=== PATIENT | female | born 1965 | race Caucasian/White ===

== ENCOUNTER 2017-01-16 10:35 | Outpatient (CLI) | payer MEDICAID | END 2017-01-16 10:36 | disposition home or self-care (01) | DX: Z13.9 Encounter for screening, unspecified (principal); Z13.29 Encounter for screening for other suspected endocrine disorder; Z13.0 Encounter for screening for diseases of the blood and blood-forming organs and certain disorders involving the immune mechanism ==

== ENCOUNTER 2017-01-21 15:13 | Outpatient (CLI) | payer MEDICAID | END 2017-01-21 15:14 | disposition home or self-care (01) | DX: Z12.31 Encounter for screening mammogram for malignant neoplasm of breast (principal) ==

== ENCOUNTER 2017-01-21 15:16 | Outpatient (CLI) | payer MEDICAID | END 2017-01-21 15:17 | disposition home or self-care (01) | DX: Z30.431 Encounter for routine checking of intrauterine contraceptive device (principal) ==

== ENCOUNTER 2017-03-07 15:09 | Outpatient (CLI) | payer MEDICAID ==
[2017-03-07 17:15] LABS: FOLLICLE STIMULATING HORMONE 91.87 mIU/mL
[2017-03-07 17:16] LABS: LUTEINIZING HORMONE 23.72 mIU/mL
== END 2017-03-07 15:10 | disposition home or self-care (01) ==
LOC: LAB 15:09
PROVIDERS: ATTEND Obstetrics & Gynecology
DX: N95.1 Menopausal and female climacteric states (principal)
CPT/HCPCS: 83001; 83002

== ENCOUNTER 2017-05-24 11:45 | Outpatient (CLI) | payer MEDICAID ==
[2017-05-24 18:10] LABS: BILIRUBIN,URINE NEGATIVE (NEGATIVE)
[2017-05-24 20:01] LABS: UR CULTURE IF IND NOT INDICATED
== END 2017-05-24 11:46 | disposition home or self-care (01) ==
LOC: LAB.R 11:45
PROVIDERS: ATTEND Physician Assistant Medical
DX: N39.0 Urinary tract infection, site not specified (principal)
CPT/HCPCS: 81001; 87086

== ENCOUNTER 2017-06-05 15:20 | Outpatient (CLI) | payer MEDICAID ==
--- NOTE | 2017-06-06 09:49 | Ultrasound Report ---
RENAL ULTRASOUND: 06/05/2017 CLINICAL INDICATION: Microscopic hematuria, left flank pain. TECHNIQUE: Real-time scanning was performed with telemarketing sales representative static images obtained. FINDINGS: The right kidney measures 12.2 x 5.9 x 5.1 cm, and the left kidney measures 12.3 x 6.4 x 6 .0 cm. A 7-mm angiomyolipoma is incidentally noted in the upper pole of the left kidney, unchanged f rom previous CT of 05/25/2012. No definite shadowing calculus, hydronephrosis, or suspicious solid r enal mass is seen. Prevoid, the bladder measures 11.4 x 9.2 x 7.6 cm, yielding a prevoid volume of 416 mL. Bilateral ur eteral jets are visualized. Postvoid residual is 241 mL. IMPRESSION: NO EVIDENCE OF NEPHROLITHIASIS OR HYDRONEPHROSIS. A TOTAL OF 241 ML POSTVOID RESIDUAL. JOB #: [id number] EXT JOB #:[id number]
== END 2017-06-05 15:21 | disposition home or self-care (01) ==
LOC: DI 15:20
PROVIDERS: ATTEND Physician Assistant Medical
DX: R31.29 Other microscopic hematuria (principal); R10.9 Unspecified abdominal pain
CPT/HCPCS: 76770

== ENCOUNTER 2017-12-25 12:57 | Outpatient (CLI) | payer MEDICAID | END 2017-12-25 12:58 | disposition home or self-care (01) | LOC: LAB.F 12:57 | PROVIDERS: ATTEND Physician Assistant Medical | DX: E53.8 Deficiency of other specified B group vitamins (principal) | CPT/HCPCS: 36415; 82607 ==

== ENCOUNTER 2018-05-18 19:29 | Outpatient (CLI) | payer MEDICAID ==
--- NOTE | 2018-05-19 00:11 | XRAY Report ---
Procedure Date: 05/18/2018 Accession Number: [id number] / [id number] Procedure: XR - Hand 2 View BILAT CPT Code: FULL RESULT: EXAMS: 1. Right Hand Radiography 2. Left Hand Radiography EXAM DATE: 05/18/2018 07:41 PM. CLINICAL HISTORY: JOINT PAIN, HAND. COMPARISON: None. TECHNIQUE: 2 views each hand. FINDINGS: Right: Bones: Normal. No fractures or bone lesions. Joints: Normal. No subluxations. Soft Tissues: Normal. No soft tissue swelling. Left: Bones: Normal. No fractures or bone lesions. Joints: Normal. No subluxations. Soft Tissues: Normal. No soft tissue swelling. IMPRESSION: Normal bilateral hand radiography. RADIA
== END 2018-05-18 19:30 | disposition home or self-care (01) ==
LOC: DI 19:29
PROVIDERS: ATTEND Internal Medicine
DX: M25.542 Pain in joints of left hand (principal); M25.541 Pain in joints of right hand

== ENCOUNTER 2018-07-09 06:43 | Outpatient (CLI) | payer MEDICAID | END 2018-07-09 06:44 | disposition critical access hospital (66) | LOC: EMS 06:43 | PROVIDERS: ATTEND Surgery | DX: R07.89 Other chest pain (principal) | CPT/HCPCS: A0425; A0427; A0999 ==

== ENCOUNTER 2018-07-09 07:09 | Observation (INO) | payer MEDICAID ==
--- NOTE | 2018-07-09 07:14 | ED Physician Documentation ---
PD HPI NVD - History obtained from History obtained from: Patient - History of Present Illness Timing - onset: How many hours ago (1), Today Timing - duration: Hours (1) Timing - details: Abrupt onset Associated symptoms: Chest pain. No: Abdominal pain Contributing factors: No: Sick contact Similar symptoms before: Has not had sx before Recently seen: Not recently seen Review of Systems Constitutional: denies: Fever, Chills, Myalgias Nose: denies: Rhinorrhea / runny nose, Congestion Throat: denies: Sore throat Cardiac: denies: Palpitations, Pedal edema, Calf pain Respiratory: reports: Cough, Wheezing (past few weeks, improved the past week with meds.) GI: denies: Abdominal Pain, Nausea, Vomiting, Diarrhea (but had loose stools yesterday), Bloody / black stool : denies: Dysuria, Frequency Skin: denies: Rash Neurologic: reports: Generalized weakness. denies: Near syncope, Syncope, Altered mental status, Headache PD PAST MEDICAL HISTORY - Past Medical History Cardiovascular: None Respiratory: None Neuro: None Endocrine/Autoimmune: None - Present Medications Home Medications: Ambulatory Orders Medication Instructions Recorded Confirmed Buprenorphine HCl/Naloxone HCl 2 film SL DAILY 07/09/18 07/09/18 [Suboxone 8 mg-2 mg Sl Film] Bupropion HCl [Bupropion Xl] 150 mg PO DAILY 07/09/18 07/09/18 RX: Albuterol Sulfate [Proair Hfa 2 puffs INH Q4H PRN 07/09/18 07/09/18 Inhaler] RX: Duloxetine HCl 60 mg PO DAILY 07/09/18 07/09/18 RX: Escitalopram Oxalate 10 mg PO DAILY 07/09/18 07/09/18 RX: Methylphenidate HCl 20 mg PO TID 07/09/18 07/09/18 - Allergies Allergies/Adverse Reactions: Allergies Allergy/AdvReac Type Severity Reaction Status Date / Time Quinolones Allergy Unknown Verified 07/09/18 07:32 - Living Situation Living Arrangement: reports: At home - Social History Does the pt smoke?: Yes Smoking Status: Current every day smoker Does the pt have substance abuse?: No - Family History Family history: reports: CAD PD ED PE NORMAL - Vitals Vital signs reviewed: Yes - General General: Alert and oriented X 3, Well developed/nourished, Other (slightly anxous) - Neck Neck: Supple, no meningeal sign, No adenopathy - Cardiac Cardiac: RRR, No murmur - Respiratory Respiratory: Clear bilaterally, Other (no chestwall tenderness) - Abdomen Abdomen: Soft, Non tender - Back Back: No CVA TTP - Derm Derm: Normal color, Warm and dry - Extremities Extremities: No deformity, No tenderness to palpate, Normal ROM s pain, No edema, No calf tenderness / cord - Neuro Neuro: Alert and oriented X 3, No motor deficit, Normal speech Results - Vitals Vitals: Vital Signs - 24 hr 07/09/18 07/09/18 07:11 09:37 Temperature 36.3 C L Heart Rate 83 76 Respiratory 18 20 Rate Blood Pressure 122/85 H 109/68 O2 Saturation 97 100 Oxygen O2 Source Room air - EKG (time done) arrival Rhythm: NSR [place]: Normal Intervals: Normal FL QRS: Normal Ischemia: Normal ST segments. No: ST elevation c/w ischemia, ST depression - Labs Labs: Laboratory Tests 07/09/18 07/09/18 07/09/18 07:44 07:44 07:44 WBC 7.8 RBC 4.13 L Hgb 13.6 Hct 39.0 MCV 94.6 MCH 33.0 H MCHC 34.9 RDW 13.3 Plt Count 335 MPV 7.7 L Neut # (Auto) 5.7 Lymph # (Auto) 1.7 Dewey # (Auto) 0.2 Eos # (Auto) 0.1 Baso # (Auto) 0.1 Absolute Nucleated RBC 0.00 Nucleated RBC % 0.0 Sodium 136 Potassium 3.5 Chloride 101 Carbon Dioxide 26 Anion Gap 9.0 BUN 15 Creatinine 0.5 Estimated GFR (MDRD) 130 Glucose 124 H Calcium 9.7 Total Bilirubin 0.6 AST 25 ALT 17 Alkaline Phosphatase 103 Troponin I < 0.04 B-Natriuretic Peptide Total Protein 8.1 Albumin 4.5 Globulin 3.6 Albumin/Globulin Ratio 1.3 Lipase 29 07/09/18 07/09/18 07:44 10:40 WBC RBC Hgb Hct MCV MCH MCHC RDW Plt Count MPV Neut # (Auto) Lymph # (Auto) Dewey # (Auto) Eos # (Auto) Baso # (Auto) Absolute Nucleated RBC Nucleated RBC % Sodium Potassium Chloride Carbon Dioxide Anion Gap BUN Creatinine Estimated GFR (MDRD) Glucose Calcium Total Bilirubin AST ALT Alkaline Phosphatase Troponin I < 0.04 B-Natriuretic Peptide < 5 L Total Protein Albumin Globulin Albumin/Globulin Ratio Lipase - Rads (name of study) chest xray Radiology: Prelim report reviewed, EMP read contemporaneously (normal) PD MEDICAL DECISION MAKING - ED course Complexity details: reviewed results, considered differential - Sepsis Event Vital Signs: Vital Signs - 24 hr 07/09/18 07/09/18 07:11 09:37 Temperature 36.3 C L Heart Rate 83 76 Respiratory 18 20 Rate Blood Pressure 122/85 H 109/68 O2 Saturation 97 100 Oxygen O2 Source Room air Departure - Departure Disposition: ED Place in Observation Clinical Impression: Chest pain, rule out acute myocardial infarction Condition: Stable Record reviewed to determine appropriate education?: Yes Discharge Date/Time: 07/09/18 11:59
[2018-07-09] MEDS ORDERED: NITROGLYCERIN SL 0.4 MG TABLET SL STA (07:29)
[2018-07-09] MEDS ORDERED: LIDOCAINE VISCOUS 2% 15 ML UDC MM STA (07:29)
[2018-07-09] MEDS ORDERED: MAG HYDROX/AL HYDROX/SIMETH 30 ML UDC PO STA (07:29)
[2018-07-09] MEDS ORDERED: LORazepam 2 MG/ML VIAL IVP STA (07:30)
[2018-07-09 07:51] LABS: BASOPHILS # (AUTO) 0.1 10^3/uL (0.0-0.1); BASOPHILS % (AUTO) 0.7 %; EOSINOPHILS # (AUTO) 0.1 10^3/uL (0.0-0.7); EOSINOPHILS % (AUTO) 0.7 %; HGB - HEMOGLOBIN 13.6 g/dL (12.0-16.0); LYMPHOCYTES # (AUTO) 1.7 10^3/uL (1.5-3.5); LYMPHOCYTES % (AUTO) 22.1 %; MEAN CORPUSCULAR HGB CONC 34.9 g/dL (32.0-36.0); MEAN CORPUSCULAR VOLUME 94.6 fL (81.0-99.0); MEAN PLATELET VOLUME 7.7 fL (7.9-10.8); MONOCYTES # (AUTO) 0.2 10^3/uL (0.0-1.0); NEUTROPHILS # (AUTO) 5.7 10^3/uL (1.5-6.6); NEUTROPHILS % (AUTO) 73.5 %; PLT - PLATELET COUNT 335 10^3/uL (130-450); RED BLOOD COUNT 4.13 10^6/uL (4.20-5.40); RED CELL DISTRIBUTION WIDTH 13.3 % (12.0-15.0); WHITE BLOOD COUNT 7.8 x10^3/uL (4.8-10.8)
[2018-07-09 08:03] LABS: ALBUMIN 4.5 g/dL (3.2-5.5); ALBUMIN/GLOBULIN RATIO 1.3 (1.0-2.2); BILIRUBIN,TOTAL 0.6 mg/dL (0.2-1.0); CALCIUM 9.7 mg/dL (8.5-10.3); CREATININE 0.5 mg/dL (0.4-1.0); TOTAL PROTEIN 8.1 g/dL (6.7-8.2)
--- NOTE | 2018-07-09 08:06 | XRAY Report ---
Reason: chest pain onset today 6 am Procedure Date: 07/09/2018 Accession Number: [id number] / [id number] Procedure: XR - Chest 1 View X-Ray CPT Code: 24047 FULL RESULT: EXAM: CHEST RADIOGRAPHY EXAM DATE: 07/09/2018 07:41 AM. CLINICAL HISTORY: Chest pain onset today 6 am. COMPARISON: None. TECHNIQUE: 1 view. FINDINGS: Lungs/Pleura: No focal opacities evident. No pleural effusion. No pneumothorax. Mediastinum: Within exam limitations, the cardiomediastinal contour is normal. Other: No acute osseous abnormality. IMPRESSION: Normal single view chest. No acute cardiopulmonary abnormality. RADIA
[2018-07-09] MEDS ORDERED: NITROGLYCERIN SL 0.4 MG TABLET SL PRN (14:42)
[2018-07-09] MEDS ORDERED: ALBUTEROL NEB 2.5 MG/3 ML INH PRN (15:06)
[2018-07-09] MEDS ORDERED: SODIUM CHLORIDE FLUSH 0.9% 10 ML SYRINGE IVP PRN (18:16)
[2018-07-09] MEDS ORDERED: ACETAMINOPHEN 325 MG TABLET PO PRN (18:16)
[2018-07-09] MEDS ORDERED: PROCHLORPERAZINE 10 MG/2 ML VIAL IVP PRN (18:16)
[2018-07-09] MEDS: NICOTINE 21 MG PATCH TOP SCH (18:56)
[2018-07-09] MEDS: METHYLPHENIDATE 10 MG TABLET PO SCH ×2 (21:49→22:09)
--- NOTE | 2018-07-10 01:40 | HISTORY & PHYSICAL EXAMINATION ---
DATE OF SERVICE: 07/09/2018 Physician: Azalia Joshi MD HISTORY OF PRESENT ILLNESS: This is a 53-year-old, white female with a history of MVP, anxiety, remote drug abuse, and asthma. The patient presents with acute onset of moderate chest pressure across her entire chest with radiation to the right scapula, and associated diaphoresis and clammy feeling. The symptoms did not resolve in 30 minutes and she called 911 at work. telephone order supervisor gave her 4 baby aspirin and started sublingual nitroglycerin, and she received 2 during transfer to the ER. She had 3/10 chest pain, decreasing to 1/10 chest pain in our ER, and finally got narcotics with pain relief and then she fell asleep. There has been no recurrence of the pain since awakening. PAST MEDICAL HISTORY: Substance abuse history in the remote past, anxiety and depression, MVP, asthma. PAST SURGICAL HISTORY: Appendectomy. Sinus surgery of a bone spur in her sinus that caused severe headaches that were very difficult to diagnose until ENT found the spur and it was removed (occurred when she was a teenager with 7 years of intermittent cluster headaches). ALLERGIES: QUINOLONES. MEDICATIONS 1. ProAir inhaler p.r.n. 2. Methylphenidate 20 mg t.i.d. 3. Escitalopram 10 mg daily. 4. Bupropion XL 150 mg daily. 5. Duloxetine 60 mg daily. 6. Suboxone sublingual daily. FAMILY HISTORY: Father with heart disease at age 51. SOCIAL HISTORY: She is a smoker of 1/2 to 1 pack a day, has tried to quit. She drinks alcohol occasionally. No drug abuse. 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 REVIEW OF SYSTEMS: She has been under more than usual stress lately due to the current divorce case she is working on. She remembers having extensive cardiac evaluation when she was being evaluated for headaches as a teenager. A comprehensive review of systems was performed and the pertinent positives are listed here and in the HPI, the others are negative. PHYSICAL EXAMINATION GENERAL: White female, currently in no distress. VITAL SIGNS: Blood pressure 109/68, pulse of 78, sinus rhythm, afebrile, room air saturation 98% HEENT: Unremarkable. NECK: Without JVD or carotid bruits. CHEST: Clear. CARDIOVASCULAR: S1 and S2 normal, with a midsystolic click and a 1-2/6 late systolic murmur. No gallop. ABDOMEN: Soft, positive bowel sounds, nontender. No organomegaly. EXTREMITIES: No clubbing, cyanosis, edema. NEUROLOGIC: Intact. LABORATORIES: Normal electrolytes. Normal troponins x3. Normal liver tests. Normal CBC. No INR was done. EKGy: Normal sinus rhythm, diffusely flat T waves. There is no old EKG available for comparison. Chest x-ray: No active disease. IMPRESSION/DIAGNOSES 1. New onset of chest pain with features that suggest angina. The patient's coronary risk factors include a family history (in one family member who had cardiac disease at 51), smoking, postmenopausal status, unknown lipid status. 2. Abnormal electrocardiogram. 3. Anxiety and depression history. 4. Mitral valve prolapse history. PLAN: Place the patient in Observation for further monitoring for any symptoms and proceed to a stress test, as well as a resting Echo. Begin sublingual nitroglycerin p.r.n. chest pain and obtain an EKG during pain, if it should recur. Check a lipid panel. Continue her other pre-hospital medications. DEEP VENOUS THROMBOSIS PROPHYLAXIS: None, as the patient is ambulatory. CODE STATUS: FULL CODE. ATTESTATION: The patient is expected to be discharged or transferred to another facility within 96 hours: Yes. TD: 07/09/2018 20:22 JENNIFER
[2018-07-10 06:28] LABS: BUN - BLOOD UREA NITROGEN 22 mg/dL (6-20); CALCIUM 9.3 mg/dL (8.5-10.3); CARBON DIOXIDE - CO2 26 mmol/L (21-32); CHLORIDE 105 mmol/L (101-111); CHOL/HDL RATIO 4.3 (<4.4); CHOLESTEROL 243 mg/dL; CREATININE 0.5 mg/dL (0.4-1.0); GFR - MDRD 130 (>89); GLUCOSE 113 mg/dL (70-100); HDL CHOLESTEROL 57 mg/dL; LDL CHOLESTEROL,CALCULATED 162 mg/dL; LDL/HDL RATIO 2.8 (<4.4); MAGNESIUM 2.3 mg/dL (1.7-2.8); SODIUM 139 mmol/L (135-145); VLDL CHOLESTEROL 24 mg/dL
[2018-07-10] MEDS ORDERED: FAMOTIDINE 20 MG TABLET PO SCH (09:00)
[2018-07-10] MEDS ORDERED: ESCITALOPRAM 10 MG TABLET PO SCH (09:00)
[2018-07-10] MEDS ORDERED: POLYETHYLENE GLYCOL 3350 17 GM PACKET PO SCH (09:00)
[2018-07-10] MEDS ORDERED: DULoxetine 30 MG CAPSULE PO SCH (09:00)
[2018-07-10] MEDS ORDERED: buPROPion XL 150 MG TABLET PO SCH (09:00)
[2018-07-10] MEDS: METHYLPHENIDATE 10 MG TABLET PO SCH ×2 (09:29→14:16)
[2018-07-10] MEDS: NICOTINE 21 MG PATCH TOP SCH (09:31)
[2018-07-10] MEDS: SODIUM CHLORIDE FLUSH 0.9% 10 ML SYRINGE IVP SCH ×3 (09:35→17:34)
--- NOTE | 2018-07-10 17:14 | Nuclear Medicine Report ---
Reason: Chest Pain Procedure Date: 07/10/2018 Accession Number: [id number] / [id number] Procedure: NM - Myocardial Perfusion STR/RST CPT Code: FULL RESULT: EXAM: SINGLE-ISOTOPE EXERCISE STRESS TEST. SINGLE-ISOTOPE AND ONE-DAY REST/STRESS MYOCARDIAL PERFUSION SCANS WITH TOMOGRAPHIC IMAGING, QUANTITATIVE ANALYSIS, WALL MOTION ANALYSIS AND CALCULATION OF EJECTION FRACTION. EXAM DATE: 07/10/2018 04:27 PM. CLINICAL HISTORY: Chest Pain. COMPARISON: None. TECHNIQUE: A rest myocardial perfusion scan was done with tomography after the intravenous administration of 9.9 mCi Tc-99m sestamibi. After an appropriate delay, a treadmill exercise stress was performed according to department protocol. The patient exercised for 7 minutes and 57 seconds. The maximum heart rate was 129 bpm, which was 76% of the maximum predicted heart rate of 169 bpm. At approximately peak heart rate, 40.3 mCi of Tc-99m sestamibi was injected for stress myocardial perfusion scan. Motion correction was applied when appropriate. Gated tomographic images were obtained for wall motion analysis and computation of left ventricular ejection fraction. FINDINGS: Perfusion images: Left ventricular chamber size is normal at rest and unchanged at stress. No convincing fixed perfusion deficits. No convincing reversible perfusion deficits. Gated images: No focal wall motion abnormality. Left ventricular EDV 70 mL, ESV 19 mL. The left ventricular ejection fraction is estimated at 73% (normal > 50%). IMPRESSION: 1. No convincing reversible perfusion deficits to indicate stress-induced ischemia. 2. No convincing fixed perfusion deficits. 3. Left ventricular ejection fraction of 73% (normal > 50%). 4. No focal wall motion abnormalities. RADIA
--- NOTE | 2018-07-10 17:54 | Discharge Plan ---
Discharge Plan Disposition: 01 Home, Self Care Condition: Stable Diet: Cardiac Activity Restrictions: No Restrictions Shower Restrictions: No Driving Restrictions: No Instruction Topics: Heart Attack Sx, Angina Dc, Heart Attack Warning Signs Additional Instructions or Follow Up instructions: See your doctor in follow-up for smoking cessation management, medications for stress (like Propranolol for "stage fright"), and for cholesterol follow-up and management. Start taking 1 baby aspirin daily for heart health. Return to the ER if you have worse or recurring symptoms. No Smoking: If you smoke, Please STOP! Call for help. Follow-up with: Lina Sorto PA-C [Primary Care Provider] -
[2018-07-10 18:21] VITALS: BP 122/71
--- NOTE | 2018-07-17 01:51 | CARDIAC PROCEDURE NOTE ---
DATE OF SERVICE: 07/10/2018 Physician: Azalia Joshi MD INDICATION: Chest pain. CARDIAC RISK FACTORS: Hypertension, family history of heart disease, smoker. After signing informed consent, the patient completed a Andrea protocol stress test with myocardial perfusion scan. The patient exercised for 7 minutes and 57 seconds, achieved a peak heart rate of 129 (80% PMHR), 10.06 METS. The patient developed mild shortness of breath at peak and mild right scapular pain only. No anterior chest pain. Test stopped due to development of her typical symptom of chest discomfort. Resting EKG: Normal sinus rhythm, LVH voltage. Peak EKG: Normal sinus rhythm, flat inferior T waves. IMPRESSION 1. Fair-good exercise tolerance. 2. Borderline abnormal electrocardiogram changes at 80% predicted maximum heart rate for age. Test stopped at 80% PMHR due to development of her typical symptom of chest discomfort. 3. Nuclear images reported separately. TD: 07/16/2018 20:07 MTDFranky
--- NOTE | 2018-07-20 12:50 | DISCHARGE SUMMARY ---
Physician: Azalia Joshi MD DATE OF ADMISSION: 07/09/2018 DATE OF DISCHARGE: 07/10/2018 HISTORY OF PRESENT ILLNESS: This is a 53-year-old white female with a history of mitral valve prolapse, remote drug abuse now on Suboxone, history of anxiety, history of recent upper respiratory infection using inhalers p.r.n. Patient presented with acute onset of chest pressure across her entire chest, radiating to the right scapula, with diaphoresis and a clammy feeling. The symptoms occurred at work and did not resolve in 30 minutes; therefore, she called 911. Paramedics gave her 4 baby aspirin and sublingual nitroglycerin. She still had mild symptoms in the emergency room and was given narcotics and had pain relief and fell asleep. The patient was placed in Observation for evaluation of new onset of chest pain. HOSPITAL COURSE AND DISCHARGE DIAGNOSES 1. Chest pain. Patient's EKG was abnormal. It showed normal sinus rhythm, and diffusely flat T waves. The patient had troponins that were negative x3. She underwent a treadmill stress test with myocardial perfusion. She exercised for 7 minutes and 57 seconds, achieved a peak heart rate of 80% predicted maximum heart rate, 10 METS, and developed her mild right scapular pain and also had mild shortness of breath. The test was stopped because of development of her typical symptoms. The nuclear scan associated with this showed no perfusion defect, fixed or reversible. It was felt that the patient's chest and right scapular discomfort might have been related to the recent upper respiratory and chest infection and need for inhalers. She was advised to begin aggressive risk factor management because of a family history of early heart disease. A lipid panel was done and showed a total cholesterol of 243, LDL of 162 and triglycerides of 118, and a heart healthy diet was reviewed with the patient. 2. Abnormal EKG. The patient's resting EKG is abnormal. This may be her baseline and could be related to mitral valve prolapse. 3. Anxiety. The patient was kept on her home medications for anxiety/depression and had no exacerbations. 4. Mitral valve prolapse. Patient underwent a resting Echo exam, which showed normal chamber sizes, normal LV systolic function with EF of 65-70% and trace mitral regurgitation via a central jet. There was no mention about mitral valve prolapse; however, a midsystolic click is heard on physical exam. This suggests that she has a very mild or a borderline form of mitral valve prolapse. ALLERGIES: QUINOLONES. MEDICATIONS AT THE TIME OF DISCHARGE 1. Albuterol inhaler p.r.n. 2. Suboxone as directed. 3. Bupropion 150 mg daily. 4. Duloxetine 60 mg daily. 5. Escitalopram 10 mg daily. 6. Methylphenidate 20 mg t.i.d. PHYSICAL EXAMINATION AT DISCHARGE VITAL SIGNS: Stable. Blood pressure 122/70, heart rate 65, afebrile, room air saturation 95%. HEENT: Unremarkable. NECK: Without JVD or carotid bruits. CHEST: Clear. HEART: Heart sounds of a midsystolic click and late systolic murmur graded 1/6. ABDOMEN: Soft. EXTREMITIES: Without edema or clubbing. NEUROLOGIC: Intact. FOLLOWUP: With her PCP in the next 1-2 weeks for further management. CODE STATUS: FULL CODE. Time required to complete this discharge and dictation: 30 minutes. cc: Lina Sorto PA-C TD: 07/20/2018 11:32 MTDD
== END 2018-07-10 18:35 | disposition home or self-care (01) ==
LOC: EDUNIT# → ED 07:09 → MS3 11:02 → OBS 11:49
PROVIDERS: ADMIT Internal Medicine; ATTEND Internal Medicine
DX: R07.9 Chest pain, unspecified (principal); I34.1 Nonrheumatic mitral (valve) prolapse; R94.31 Abnormal electrocardiogram [ECG] [EKG]; F41.9 Anxiety disorder, unspecified; F19.11 Other psychoactive substance abuse, in remission; J45.909 Unspecified asthma, uncomplicated; F32.9 Major depressive disorder, single episode, unspecified; Z79.51 Long term (current) use of inhaled steroids; Z82.49 Family history of ischemic heart disease and other diseases of the circulatory system; F17.210 Nicotine dependence, cigarettes, uncomplicated
CPT/HCPCS: 36415; 71045; 78452; 80048; 80053; 80061; 83690; 83735; 83880; 84484; 85025; 93005; 93010; 93017; 93306; 96374; 99284; A9270; A9500; G0378; J2060; 83721; 99283

== ENCOUNTER 2020-03-14 17:54 | Outpatient (CLI) | payer MEDICAID ==
--- NOTE | 2020-03-15 14:26 | XRAY Report ---
Reason: KNEE JOINT PAIN, LEFT Procedure Date: 03/14/2020 Accession Number: [id number] / [id number] Procedure: XR - Knee 3 View LT CPT Code: Final Report FULL RESULT: EXAM: LEFT KNEE RADIOGRAPHY EXAM DATE: 03/14/2020 06:33 PM. CLINICAL HISTORY: KNEE JOINT PAIN, LEFT. COMPARISON: None. TECHNIQUE: 3 views. FINDINGS: Bones: Normal. No fractures or bone lesions. Joints: Normal. No effusion. No subluxations. Soft Tissues: Normal. No soft tissue swelling. IMPRESSION: Normal left knee radiography. RADIA
== END 2020-03-14 17:55 | disposition home or self-care (01) ==
LOC: DI 17:54
PROVIDERS: ATTEND Registered Nurse
DX: M25.562 Pain in left knee (principal)

== ENCOUNTER 2020-07-13 13:23 | Outpatient (CLI) | payer MEDICAID ==
--- NOTE | 2020-07-14 07:56 | Mammography Report ---
BILATERAL DIGITAL SCREENING MAMMOGRAM 3D/2D: 07/13/2020 CLINICAL: Routine screening. Comparison is made to exams dated: 01/21/2017 mammogram, 11/13/2012 ultrasound, and 11/13/2012 mammogra m - Located within [facility]. There are scattered fibroglandular elements in both breasts. No significant masses, calcifications, or other findings are seen in either breast. There has been no significant interval change. IMPRESSION: NEGATIVE There is no mammographic evidence of malignancy. A 1 year screening mammogram is recommended. This exam was interpreted at Station ID: [id number]. NOTE: For mammograms, a report in lay terms will be sent to the patient. Approximately 15% of breast malignancies will not be visualized mammographically. In the management of a palpable breast mass, a negative mammogram must not discourage biopsy of a clinically suspicious lesion. Electronically Signed By: Mahamed Yost M.D., jr/mart:07/13/2020 15:09:57 ACR BI-RADS Category 1: Negative 3341F PARENCHYMAL PATTERN: (A) - The breast(s) demonstrate(s) scattered fibroglandular densities. BI-RADS CATEGORY: (1) - 1 RECOMMENDATION: (ANNUAL) - Recommend routine annual screening mammography. [id number] 1 year screening LATERALITY: (B)
== END 2020-07-13 13:24 | disposition home or self-care (01) ==
LOC: DI 13:23
DX: Z12.31 Encounter for screening mammogram for malignant neoplasm of breast (principal)
CPT/HCPCS: 77063; 77067

== ENCOUNTER 2020-08-01 08:00 | Outpatient (CLI) | payer MEDICAID ==
--- NOTE | 2020-08-01 12:33 | XRAY Report ---
PROCEDURE: Cervical Spine 2 View INDICATIONS: CERVICAL STRAIN TECHNIQUE: 3 view(s) of the cervical spine were acquired. COMPARISON: None. FINDINGS: Bones: No fractures or dislocations to the T1 level. Straightening of the normal cervical lordosis. Trace anterolisthesis C4 on 5 and trace retrolisthesis C5 on C6. Moderate endplate spurring and disc height loss C5, C6, and C7. The lateral masses of C1 appear intact on the odontoid view. Mild spurr ing at the C1-2 interval. No suspicious bony lesions. Soft tissues: No prevertebral soft tissue swelling. IMPRESSION: 1. Loss of lordosis may be secondary to muscle spasm or posture. 2. Minor degenerative appearing subluxation, uncovertebral joint hypertrophy, and disc height loss ma y contribute to foraminal or spinal canal narrowing. Consider MRI. Reviewed by: Rosina Rubin MD on 08/01/2020 12:32 PM PDT Approved by: Rosina Rubin MD on 08/01/2020 12:32 PM PDT Station ID: [id number]
== END 2020-08-01 23:59 | disposition home or self-care (01) ==
LOC: DI.S 08:00
PROVIDERS: ATTEND Physician Assistant Medical
DX: S16.1XXA Strain of muscle, fascia and tendon at neck level, initial encounter (principal); M54.12 Radiculopathy, cervical region
CPT/HCPCS: 72040

== ENCOUNTER 2020-08-06 07:01 | Outpatient (CLI) | payer MEDICAID ==
--- NOTE | 2020-08-07 09:47 | MRI Report ---
PROCEDURE: Cervical Spine W/O INDICATIONS: CERVICAL MYELOPATHY TECHNIQUE: Noncontrast sagittal T1 spin echo and T2 fast spin echo, sagittal STIR, foraminal oblique sagittal T2 fast spin echo, and axial gradient echo or T2 fast spin echo through the cervical spine. COMPARISON: None. FINDINGS: Image quality: Excellent. Alignment and Curvature: There is loss of the expected cervical lordosis. Bone Marrow: Marrow demonstrates normal overall signal. Spinal Cord: Visualized spinal cord has normal size and signal. No cerebellar tonsillar herniation. Paraspinous Soft Tissues: No paravertebral masses. Prevertebral soft tissues are normal in thicknes s. C2-C3: Normal in appearance. C3-C4: Mild disc desiccation and height loss. Broad based disc bulge. Posterior left lateral disc b ulge with narrowing of the left lateral recess and severe neural foraminal stenosis. Mild right neura l foraminal narrowing. C4-C5: Severe disc desiccation and height loss. Broad based disc bulge. Mild canal stenosis with fla ttening of the anterior aspect of the cord. No cord signal abnormality. Mild right and moderate left neural foraminal stenosis. C5-C6: Severe disc desiccation and height loss. Broad based disc bulge. Mild canal stenosis. Severe bilateral neural foraminal stenosis. C6-C7: Severe disc desiccation and height loss. Broad based disc bulge. Mild canal stenosis. Moderat e right and severe left foraminal stenosis. C7-T1: Normal in appearance. IMPRESSION: 1. Disc desiccation and height loss throughout the cervical spine most severe from C4-C7. 2. Multilevel broad-based disc bulges with effacement of the CSF space, mild canal stenosis, and flat tening of the anterior aspect of the cord at C4-5. No cord signal abnormality. 3. Severe neural foraminal narrowing on the right at C3-4, bilaterally at C5-6, and on the left at C6 -7. 4. Moderate foraminal stenosis on the left at C4-5 and on the right at C6-7. Reviewed by: Ligia Stevenson MD on 08/07/2020 9:46 AM PDT Approved by: Ligia Stevenson MD on 08/07/2020 9:46 AM PDT Station ID: [id number]
== END 2020-08-06 07:02 | disposition home or self-care (01) ==
LOC: DI 07:01
PROVIDERS: ATTEND Internal Medicine
DX: M50.31 Other cervical disc degeneration, high cervical region (principal); M48.02 Spinal stenosis, cervical region
CPT/HCPCS: 72141

== ENCOUNTER 2020-08-08 09:46 | Emergency (ER) | payer MEDICAID ==
--- NOTE | 2020-08-08 10:47 | ED Physician Documentation ---
PD HPI BACK PAIN - Stated complaint Stated Complaint: UPPER BACK PX - History obtained from History obtained from: Patient - History of Present Illness Timing - onset: How many days ago (has had almost a week of upper thoracic area pain to right of center. No noted abrupt injury. No fever nor rash. Pain worse with ROM. No weakness nor numbness in arms.) Timing - duration: Days Timing - details: Gradual onset, Still present Quality: Pain, Spasm, Sharp, Aching Associated symptoms: No: Fever, Weakness, Numbness Improves with: No: Rest, Meds Worsened by: Movement, Palpation Contributing factors: No: Lifting, Twisting, Trauma Similar symptoms before: Has not had sx before Recently seen: Not recently seen Review of Systems Constitutional: denies: Fever, Chills Nose: denies: Rhinorrhea / runny nose, Congestion Throat: denies: Sore throat Respiratory: denies: Cough Skin: denies: Rash, Lesions Musculoskeletal: reports: Neck pain (upper thoracic/to lower cervical area.), Back pain Neurologic: denies: Focal weakness, Numbness, Altered mental status PD PAST MEDICAL HISTORY - Past Medical History Cardiovascular: None Respiratory: None Neuro: None Endocrine/Autoimmune: None [employer]SULTANT: Ovarian cysts Psych: Depression, Anxiety - Past Surgical History General: Appendectomy, Colonoscopy HEENT: Rhinoplasty - Present Medications Home Medications: Ambulatory Orders Medication Instructions Recorded Confirmed Albuterol Sulfate [Proair Hfa 2 puffs INH Q4H PRN 07/09/18 07/09/18 Inhaler] Buprenorphine HCl/Naloxone HCl 2 film SL DAILY 07/09/18 07/09/18 [Suboxone 8 mg-2 mg Sl Film] Bupropion HCl [Bupropion Xl] 150 mg PO DAILY 07/09/18 07/09/18 Duloxetine HCl 60 mg PO DAILY 07/09/18 07/09/18 Escitalopram Oxalate 10 mg PO DAILY 07/09/18 07/09/18 Methylphenidate HCl 20 mg PO TID 07/09/18 07/09/18 - Allergies Allergies/Adverse Reactions: Allergies Allergy/AdvReac Type Severity Reaction Status Date / Time Quinolones Allergy Unknown Verified 07/09/18 07:32 - Social History Does the pt smoke?: Yes Smoking Status: Current every day smoker Does the pt drink ETOH?: Yes Does the pt have substance abuse?: No PD ED PE NORMAL - Vitals Vital signs reviewed: Yes - General General: Alert and oriented X 3, Well developed/nourished, Other (appears in pain and some guarding ROM of the neck. ) - Neck Neck: Supple, no meningeal sign, No bony TTP (but is tender right of midline in muscular soft tissue. ), No adenopathy - Derm Derm: Normal color, Warm and dry, No rash - Neuro Neuro: Alert and oriented X 3, No motor deficit, No sensory deficit, Normal speech Results - Vitals Vitals: Oxygen O2 Source Room air PD MEDICAL DECISION MAKING - ED course Complexity details: reviewed results, considered differential, d/w patient Departure - Departure Disposition: 01 Home, Self Care Clinical Impression: Neck pain, Cervical radiculitis Condition: Stable Discharge Date/Time: 08/08/20 13:20
[2020-08-08] MEDS ORDERED: TRIAMCINOLONE 40 MG/ML VIAL ONE (11:37)
[2020-08-08] MEDS ORDERED: KETOROLAC 30 MG/ML VIAL ONE (11:37)
[2020-08-08] MEDS ORDERED: HYDROmorphone 1 MG/ML CARPUJECT ONE (11:37)
== END 2020-08-08 13:20 | disposition home or self-care (01) ==
LOC: ED 09:46
DX: M54.12 Radiculopathy, cervical region (principal); M50.322 Other cervical disc degeneration at C5-C6 level; F17.200 Nicotine dependence, unspecified, uncomplicated
CPT/HCPCS: 20552; 96372; 99283; J1170

== ENCOUNTER 2020-09-21 15:03 | Outpatient (CLI) | payer MEDICAID | END 2020-09-21 23:59 | disposition home or self-care (01) | LOC: LAB.R 15:03 | PROVIDERS: ATTEND Emergency Medicine | DX: R68.83 Chills (without fever) (principal); Z20.828 Contact with and (suspected) exposure to other viral communicable diseases ==

== ENCOUNTER 2021-07-05 16:08 | Outpatient (CLI) | payer MEDICAID ==
[2021-07-05 20:49] LABS: RHEUMATOID FACTOR NEGATIVE (Negative)
== END 2021-07-05 16:09 | disposition home or self-care (01) ==
LOC: LAB.S 16:08
PROVIDERS: ATTEND Physician Assistant
DX: M25.50 Pain in unspecified joint (principal); M54.2 Cervicalgia; M79.10 Myalgia, unspecified site
CPT/HCPCS: 36415; 85651; 86140; 86200; 86430

== ENCOUNTER 2021-08-31 14:05 | Outpatient (CLI) | payer MEDICAID ==
--- NOTE | 2021-08-31 16:04 | XRAY Report ---
PROCEDURE: Shoulder 3 View LT INDICATIONS: LEFT SHOULDER PAIN TECHNIQUE: 4 views of the shoulder were acquired. COMPARISON: None. FINDINGS: Bones: No fractures or dislocations. Mild degenerative change. No suspicious bony lesions. Visualiz ed ribs appear intact. Soft tissues: No suspicious soft tissue calcifications. IMPRESSION: Mild degenerative change. No evidence acute bony abnormality of the left shoulder. If clinical suspicion and/or symptoms persist, further assessment with repeat plain films or advanced imaging (e.g., CT, MRI, or bone scan) may be helpful for further assessment. Reviewed by: Hao Roberson MD on 08/31/2021 4:03 PM PDT Approved by: Hao Roberson MD on 08/31/2021 4:03 PM PDT Station ID: [id number]
== END 2021-08-31 14:06 | disposition home or self-care (01) ==
LOC: DI.N 14:05
PROVIDERS: ATTEND Orthopaedic Surgery
DX: M19.012 Primary osteoarthritis, left shoulder (principal)

== ENCOUNTER 2021-11-09 08:00 | Outpatient (CLI) | payer MEDICAID ==
--- NOTE | 2021-11-09 16:53 | XRAY Report ---
PROCEDURE: Cervical Spine Complete INDICATIONS: CERVICAL RADICULOPATHY; CERVICAL MYELOPATHY, CERVICAL STENOSIS TECHNIQUE: 5 view(s) of the cervical spine were acquired. COMPARISON: None. FINDINGS: Postsurgical changes of C6-C7 and C7-T1 ACDF with low profile anterior fusion and interbody devices. No acute complicating hardware feature identified. Straightening of usual cervical lordosis is similar to the preoperative July 2020 examination. Extensive degenerative changes are also similar. IMPRESSION: Interval C6-C7 and C7-T1 fusion since July 2020. No acute calcaneal hardware feature identified. C onsider cross-sectional imaging for more complete evaluation. Reviewed by: Mahamed Yost MD on 11/09/2021 3:52 PM [facility] Approved by: Mahamed Yost MD on 11/09/2021 3:52 PM [facility] Station ID: [id number]
== END 2021-11-09 23:59 ==
LOC: DI.S 08:00
PROVIDERS: ATTEND Neurological Surgery
DX: M54.12 Radiculopathy, cervical region (principal); G95.9 Disease of spinal cord, unspecified; M48.02 Spinal stenosis, cervical region; Z98.1 Arthrodesis status

== ENCOUNTER 2022-04-13 08:00 | Outpatient (CLI) | payer MEDICAID ==
--- NOTE | 2022-04-13 20:38 | XRAY Report ---
PROCEDURE: Chest 2 View X-Ray INDICATIONS: ACUTE COUGH/CHEST CONGESTION TECHNIQUE: 2 view(s) of the chest. COMPARISON: None. FINDINGS: Surgical changes and devices: Spine fixation hardware. Lungs and pleura: No pleural effusions or pneumothorax. Lungs are clear. Mediastinum: Mediastinal contours are normal. Heart size is normal. Bones and chest wall: No suspicious bony abnormalities. Soft tissues appear unremarkable. IMPRESSION: No acute cardiopulmonary disease process. Reviewed by: Lolis Diego MD, PhD on 04/13/2022 8:37 PM PDT Approved by: Lolis Diego MD, PhD on 04/13/2022 8:37 PM PDT Station ID: [id number]
== END 2022-04-13 23:59 | disposition home or self-care (01) ==
LOC: DI.S 08:00
PROVIDERS: ATTEND Physician Assistant Medical
DX: R05.1 Acute cough (principal); R09.89 Other specified symptoms and signs involving the circulatory and respiratory systems

== ENCOUNTER 2022-08-01 11:09 | Outpatient (CLI) | payer MEDICAID ==
[2022-08-01 14:43] LABS: THYROID STIMULATING HORMONE 0.4 uIU/mL (0.34-5.60)
[2022-08-01 14:51] LABS: BASOPHILS # (AUTO) 0.1 10^3/uL (0.0-0.1); BASOPHILS % (AUTO) 1.3 %; EOSINOPHILS # (AUTO) 0.3 10^3/uL (0.0-0.7); EOSINOPHILS % (AUTO) 4.5 %; HCT - HEMATOCRIT 41.7 % (37.0-47.0); HGB - HEMOGLOBIN 14.1 g/dL (12.0-16.0); LYMPHOCYTES # (AUTO) 1.9 10^3/uL (1.5-3.5); LYMPHOCYTES % (AUTO) 24.2 %; MEAN CORPUSCULAR HEMOGLOBIN 32.6 pg (27.0-31.0); MEAN CORPUSCULAR HGB CONC 33.8 g/dL (32.0-36.0); MEAN CORPUSCULAR VOLUME 96.5 fL (81.0-99.0); MEAN PLATELET VOLUME 10.3 fL (7.9-10.8); MONOCYTES # (AUTO) 0.4 10^3/uL (0.0-1.0); MONOCYTES % (AUTO) 5.2 %; NEUTROPHILS # (AUTO) 4.9 10^3/uL (1.5-6.6); NEUTROPHILS % (AUTO) 64.7 %; PLT - PLATELET COUNT 338 10^3/uL (130-450); RED BLOOD COUNT 4.32 10^6/uL (4.20-5.40); RED CELL DISTRIBUTION WIDTH 13.2 % (12.0-15.0); WHITE BLOOD COUNT 7.6 x10^3/uL (4.8-10.8)
[2022-08-01 15:26] LABS: ALBUMIN 4.6 g/dL (3.2-5.5); ALBUMIN/GLOBULIN RATIO 1.4 (1.0-2.2); ALKALINE PHOSPHATASE 118 IU/L (42-121); ALT ALANINE AMINOTRANSFERASE 25 IU/L (10-60); AST ASPARTATE AMINOTRANSFERASE 27 IU/L (10-42); BILIRUBIN,TOTAL 0.9 mg/dL (0.2-1.0); BUN - BLOOD UREA NITROGEN 13 mg/dL (6-20); CALCIUM 9.7 mg/dL (8.5-10.3); CARBON DIOXIDE - CO2 27 mmol/L (21-32); CHLORIDE 104 mmol/L (101-111); CHOL/HDL RATIO 4.1 (<4.4); CHOLESTEROL 336 mg/dL; CREATININE 0.7 mg/dL (0.4-1.0); GFR - MDRD 87 (>89); GLUCOSE 116 mg/dL (70-100); HDL CHOLESTEROL 81 mg/dL; LDL CHOLESTEROL,CALCULATED 230 mg/dL; LDL/HDL RATIO 2.8 (<4.4); POTASSIUM 4.2 mmol/L (3.5-5.0); SODIUM 137 mmol/L (135-145); TOTAL PROTEIN 7.8 g/dL (6.7-8.2); TRIGLYCERIDES 126 mg/dL; VLDL CHOLESTEROL 25 mg/dL
== END 2022-08-01 11:10 | disposition home or self-care (01) ==
LOC: LAB.S 11:09
PROVIDERS: ATTEND Internal Medicine
DX: E55.9 Vitamin D deficiency, unspecified (principal); Z13.1 Encounter for screening for diabetes mellitus; Z13.220 Encounter for screening for lipoid disorders; F32.A Depression, unspecified; Z13.0 Encounter for screening for diseases of the blood and blood-forming organs and certain disorders involving the immune mechanism
CPT/HCPCS: 36415; 80050; 80061; 82306; 83721

== ENCOUNTER 2022-08-09 11:21 | Outpatient (CLI) | payer MEDICAID ==
--- NOTE | 2022-08-10 09:42 | Mammography Report ---
BILATERAL DIGITAL SCREENING MAMMOGRAM 3D/2D: 08/09/2022 CLINICAL: Routine screening. Comparison is made to exams dated: 07/13/2020 mammogram, 01/21/2017 mammogram, and 11/13/2012 mammogram - [facility]. There are scattered areas of fibroglandular density in both breasts (category b / 25%-50% glandular t issue). No significant masses, calcifications, or other findings are seen in either breast. There has been no significant interval change. IMPRESSION: NEGATIVE There is no mammographic evidence of malignancy. A 1 year screening mammogram is recommended. Based on the Tyrer Cuzick model (a risk assessment model) the patients lifetime risk is 8.3% and her 10 year risk is 2.5%. According to the ACR, ACS, and NCCN guidelines, an annual breast MRI exam rocky g with mammogram is recommended if the patients lifetime risk is 20% or greater. This exam was interpreted at Station ID: [id number]. NOTE: For mammograms, a report in lay terms will be sent to the patient. Approximately 15% of breast malignancies will not be visualized mammographically. In the management of a palpable breast mass, a negative mammogram must not discourage biopsy of a clinically suspicious lesion. Electronically Signed By: Clifton carrington/mart:08/09/2022 18:01:48 ACR BI-RADS Category 1: Negative 3341F PARENCHYMAL PATTERN: (A) - The breast(s) demonstrate(s) scattered fibroglandular densities. BI-RADS CATEGORY: (1) - 1 RECOMMENDATION: (ANNUAL) - Recommend routine annual screening mammography. [id number] 1 year screening LATERALITY: (B)
== END 2022-08-09 11:22 | disposition home or self-care (01) ==
LOC: DI 11:21
PROVIDERS: ATTEND Internal Medicine
DX: Z12.31 Encounter for screening mammogram for malignant neoplasm of breast (principal)

== ENCOUNTER 2022-08-18 08:00 | Outpatient (CLI) | payer MEDICAID ==
[2022-08-20 15:05] LABS: FECAL OCCULT BLOOD (FIT) NEGATIVE (NEGATIVE)
== END 2022-08-18 23:59 | disposition home or self-care (01) ==
LOC: LAB.R 08:00
PROVIDERS: ATTEND Internal Medicine
DX: Z12.11 Encounter for screening for malignant neoplasm of colon (principal)
CPT/HCPCS: 82274

== ENCOUNTER 2022-08-29 11:14 | Outpatient (CLI) | payer MEDICAID ==
[2022-08-29 15:37] LABS: THYROID STIMULATING HORMONE 0.74 uIU/mL (0.34-5.60)
[2022-08-29 15:39] LABS: FREE T3 3.52 pg/mL (2.5-3.9); FREE T4 (FREE THYROXINE) 0.86 ng/dL (0.58-1.64)
== END 2022-08-29 11:15 | disposition home or self-care (01) ==
LOC: LAB.S 11:14
PROVIDERS: ATTEND Internal Medicine
DX: R94.6 Abnormal results of thyroid function studies (principal)
CPT/HCPCS: 36415; 84439; 84443; 84481

== ENCOUNTER 2023-03-12 07:00 | Outpatient (CLI) | payer MEDICAID ==
--- NOTE | 2023-03-12 17:11 | XRAY Report ---
PROCEDURE: Wrist 3 View LT INDICATIONS: CONTUSION OF LEFT WRIST TECHNIQUE: 3 views of the wrist were acquired. COMPARISON: None. FINDINGS: Bones: No fractures or dislocations. No suspicious bony lesions. Soft tissues: No suspicious soft tissue calcifications or masses. IMPRESSION: No visualized acute fracture or dislocation. However, occult injury cannot be excluded. Recommend hansa rt interval imaging follow-up in 7-10 days as clinically indicated for additional evaluation. Reviewed by: Mora Lay MD on 03/12/2023 5:10 PM PDT Approved by: Mora Lay MD on 03/12/2023 5:10 PM PDT Station ID: [id number]
== END 2023-03-12 23:59 | disposition home or self-care (01) ==
LOC: DI.S 07:00
PROVIDERS: ATTEND Emergency Medicine
DX: S60.212A Contusion of left wrist, initial encounter (principal)

== ENCOUNTER 2023-05-06 15:18 | Outpatient (CLI) | payer MEDICAID ==
--- NOTE | 2023-05-07 09:17 | XRAY Report ---
PROCEDURE: Elbow 3 View BILAT INDICATIONS: POLYARTHRALGIA, LATERAL EPICONDYLITIS, BILATERAL TECHNIQUE: 3 views of the right and left elbow were acquired. COMPARISON: None. FINDINGS: Bones: No fractures or dislocations. No suspicious bony lesions. Soft tissues: No effusion. No suspicious soft tissue calcifications . IMPRESSION: No acute bony abnormality. If pain persists with conservative management, consider repeat radiographs in 10-14 days or cross-sectional imaging. Reviewed by: Khadar Caceres MD on 05/07/2023 9:16 AM PDT Approved by: Khadar Caceres MD on 05/07/2023 9:16 AM PDT Station ID: [id number]
== END 2023-05-06 15:19 | disposition home or self-care (01) ==
LOC: DI 15:18
PROVIDERS: ATTEND Internal Medicine
DX: M77.10 Lateral epicondylitis, unspecified elbow (principal)

== ENCOUNTER 2023-07-07 07:57 | Outpatient (CLI) | payer MEDICAID ==
--- NOTE | 2023-07-07 15:41 | Ultrasound Report ---
PROCEDURE: Abdomen Complete INDICATIONS: HYPERLIPIDEMIA TECHNIQUE: Real-time scanning was performed of the abdominal and retroperitoneal organs, with image documentation. COMPARISON: None. FINDINGS: Liver: Unremarkable hepatic echotexture without focal mass lesion Gallbladder: Sonolucent without cholelithiasis or gallbladder wall thickening. Common bile duct: 3 mm Pancreas: Visualized portions of the pancreas are within normal limits Spleen: Spleen is normal in size and homogeneous in echotexture. Kidneys: Kidneys are normal in size and echotexture. No hydronephrosis or renal calculi. No solid masses. Aorta: Visualized aorta is unremarkable without aneurysm. Iliacs: Proximal common iliac arteries are unremarkable. IVC: Intrahepatic inferior vena cava is patent. Other: No free abdominal fluid. IMPRESSION: Unremarkable ultrasound of the abdomen Reviewed by: Skinny Portillo MD on 07/07/2023 2:40 PM [facility] Approved by: Skinny Portillo MD on 07/07/2023 2:40 PM [facility] Station ID: [id number]
== END 2023-07-07 07:58 | disposition home or self-care (01) ==
LOC: DI 07:57
PROVIDERS: ATTEND Internal Medicine
DX: E78.5 Hyperlipidemia, unspecified (principal)
CPT/HCPCS: 36415; 80061; 81599; 82172; 82306; 83721; 84550; 84630

== ENCOUNTER 2023-07-07 08:59 | Outpatient (CLI) | payer MEDICAID ==
[2023-07-07 09:36] LABS: CHOL/HDL RATIO 4.2 (<4.4); CHOLESTEROL 344 mg/dL; HDL CHOLESTEROL 81 mg/dL; LDL CHOLESTEROL,CALCULATED 230 mg/dL; LDL/HDL RATIO 2.8 (<4.4); TRIGLYCERIDES 166 mg/dL (48-352); URIC ACID 4.3 mg/dL (2.3-6.6); VLDL CHOLESTEROL 33 mg/dL
== END 2023-07-07 09:00 | disposition home or self-care (01) ==
LOC: LAB 08:59
PROVIDERS: ATTEND Internal Medicine
DX: E55.9 Vitamin D deficiency, unspecified (principal); E78.5 Hyperlipidemia, unspecified; M25.50 Pain in unspecified joint; L30.9 Dermatitis, unspecified
CPT/HCPCS: 36415; 80061; 81599; 82172; 82306; 83721; 84550; 84630

== ENCOUNTER 2023-08-01 12:53 | Outpatient (CLI) | payer MEDICAID ==
--- NOTE | 2023-08-01 21:56 | MRI Report ---
PROCEDURE: ELBOW WO - RT INDICATIONS: LATERAL EPICONDYLITIS OF RIGHT ELBOW TECHNIQUE: Noncontrast coronal proton density fast spin echo and T2 fast spin echo with fat saturation, axial an d sagittal T1 spin echo and T2 fast spin echo with fat saturation through the elbow. COMPARISON: Elbow radiographs 05/06/2023. FINDINGS: Image quality: Excellent. Lateral structures: Moderate to high-grade partial tearing of the common extensor tendon at the orig in superimposed on chronic tendinosis. Suspected partial tearing of the radial collateral ligament at the origin. The lateral ulnar collateral ligament is grossly intact. Medial structures: The ulnar collateral ligament appears intact. The overlying common flexor tendon demonstrates mild tendinosis. The ulnar nerve demonstrates mild thickening and increased signal int ensity. Anterior structures: Mild distal biceps tendon insertional tendinosis. Distal brachialis insertion i s intact. Trace bicipitoradial bursal fluid. The median and radial neurovascular bundles appear norm al; no focal muscle atrophy to suggest nerve impingement. Posterior structures: The triceps tendon appears intact. No olecranon bursal fluid. Bone and cartilage: No bone marrow contusions or fractures. No osteochondral injuries. IMPRESSION: 1.High-grade partial tearing of the common extensor tendon at the origin superimposed on chronic tend inosis. 2.Suspected partial tearing of the radial collateral ligament at the origin. No full-thickness ligame nt tear is seen. 3.Mild common flexor tendinosis. 4.Mild insertional tendinosis of the distal biceps tendon. 5.Thickening and increased signal intensity within the ulnar nerve are nonspecific, but can be seen i n setting of ulnar neuritis. Recommend correlation with neurologic exam findings. Reviewed by: Khadar Galaviz MD on 08/01/2023 9:54 PM PDT Approved by: Khadar Galaviz MD on 08/01/2023 9:54 PM PDT Station ID: [id number]
== END 2023-08-01 12:54 | disposition home or self-care (01) ==
LOC: DI 12:53
PROVIDERS: ATTEND Orthopaedic Surgery
DX: M77.11 Lateral epicondylitis, right elbow (principal); S56.511A Strain of other extensor muscle, fascia and tendon at forearm level, right arm, initial encounter; M67.823 Other specified disorders of tendon, right elbow

== ENCOUNTER 2023-08-12 13:14 | Outpatient (CLI) | payer MEDICAID ==
--- NOTE | 2023-08-13 09:37 | Mammography Report ---
BILATERAL DIGITAL SCREENING MAMMOGRAM 3D/2D: 08/12/2023 CLINICAL: Routine screening. Comparison is made to exams dated: 08/09/2022 mammogram, 07/13/2020 mammogram, and 01/21/2017 mammogra m - [facility]. Both breasts are almost entirely fatty (category a/<25% glandular tissue). No significant masses, calcifications, or other findings are seen in either breast. There has been no significant interval change. IMPRESSION: NEGATIVE There is no mammographic evidence of malignancy. A 1 year screening mammogram is recommended. Based on the Tyrer Cuzick model (a risk assessment model) the patients lifetime risk is 5.6% and her 10 year risk is 1.8%. According to the ACR, ACS, and NCCN guidelines, an annual breast MRI exam rocky g with mammogram is recommended if the patients lifetime risk is 20% or greater. This exam was interpreted at Station ID: [id number]. NOTE: For mammograms, a report in lay terms will be sent to the patient. Approximately 15% of breast malignancies will not be visualized mammographically. In the management of a palpable breast mass, a negative mammogram must not discourage biopsy of a clinically suspicious lesion. Electronically Signed By: Rosina banuelos/mart:08/12/2023 17:15:02 letter sent: No_Letter ACR BI-RADS Category 1: Negative 3341F PARENCHYMAL PATTERN: (F) - The breast(s) demonstrate(s) diffuse fatty replacement. BI-RADS CATEGORY: (1) - 1 Mammogram [id number] 1 year screening LATERALITY: (B)
== END 2023-08-12 13:15 | disposition home or self-care (01) ==
LOC: DI 13:14
PROVIDERS: ATTEND Nurse Practitioner
DX: Z12.31 Encounter for screening mammogram for malignant neoplasm of breast (principal)

== ENCOUNTER 2024-01-22 16:08 | Outpatient (CLI) | payer MEDICAID | END 2024-01-22 16:09 | disposition home or self-care (01) | LOC: LAB 16:08 | PROVIDERS: ATTEND Internal Medicine | DX: Z78.0 Asymptomatic menopausal state (principal) | CPT/HCPCS: 36415; 82670; 83001; 83002 ==